=== PATIENT | female | born 1985 | race Hispanic/Latino ===

== ENCOUNTER 2017-05-09 11:35 | Emergency (ER) | payer OTHER ==
[2017-05-09 12:04] VITALS: BP 143/88; PULSE 98; RESP 18; TEMP 98.6; O2SAT 100
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
== END 2017-05-09 13:40 | disposition home or self-care (01) ==
LOC: H.ER 11:35
DX: Z04.1 Encounter for examination and observation following transport accident (principal)